=== PATIENT | female | born 1965 | race Caucasian/White ===

== ENCOUNTER → 2022-04-19 | Outpatient (CLI) | payer OTHER ==
[~2022-04-19] MED LIST: ATOR40TA PO; LEVSOD50 PO; METF500 PO; METO50ER PO; MONT10T PO
== END ==
LOC: LAB SHORT 08:56 → LAB 08:56 → PLD 08:56
DX: L72.11 Pilar cyst (principal)
CPT/HCPCS: 88304

== ENCOUNTER → 2022-04-26 | Outpatient (CLI) | payer OTHER | LOC: LAB 07:50 → LAB SHORT 07:50 | DX: D48.5 Neoplasm of uncertain behavior of skin (principal) | CPT/HCPCS: 88304 ==

== ENCOUNTER 2022-09-15 08:29 | Day surgery (SDC) | payer OTHER | END 2022-09-15 10:25 | disposition home or self-care (01) | LOC: ORSCSDS 08:29 | PROC: 08RJ3JZ Replacement of Right Lens with Synthetic Substitute, Percutaneous Approach (ICD-10-PCS; principal; 2022-09-15) | DX: E11.36 Type 2 diabetes mellitus with diabetic cataract (principal); H25.13 Age-related nuclear cataract, bilateral; I10 Essential (primary) hypertension; G47.33 Obstructive sleep apnea (adult) (pediatric); Z79.84 Long term (current) use of oral hypoglycemic drugs; Z79.899 Other long term (current) drug therapy ==

== ENCOUNTER 2022-09-22 12:20 | Day surgery (SDC) | payer OTHER ==
[~2022-09-22] VITALS: Ht 165.1 cm; Wt 146.4 kg
[~2022-09-22 12:20] MED LIST changes: +OZEMPIC0.25 MG/0.
--- NOTE | 2022-09-22 12:43 | NUR ---
09/22/22 1243 Denise Tran TETRACAINE DROP IN LEFT EYE PLACED AT 1235. PLEDGET PLACED IN LEFT EYE AT 1236. PATIENT TOLERATED WELL.
[2022-09-22 13:31] VITALS: BP 139/87
== END 2022-09-22 13:44 | disposition home or self-care (01) ==
LOC: ORSCSDS 12:20
PROVIDERS: Ophthalmology
PROC: 08RK3JZ Replacement of Left Lens with Synthetic Substitute, Percutaneous Approach (ICD-10-PCS; principal; 2022-09-22 13:30)
DX: E11.36 Type 2 diabetes mellitus with diabetic cataract (principal); H25.12 Age-related nuclear cataract, left eye; Z96.1 Presence of intraocular lens; G47.33 Obstructive sleep apnea (adult) (pediatric); I10 Essential (primary) hypertension; E07.9 Disorder of thyroid, unspecified; Z79.84 Long term (current) use of oral hypoglycemic drugs; Z79.899 Other long term (current) drug therapy
CPT/HCPCS: 82947; J2250; J3010; J3301; J7040; V2632